=== PATIENT | female | born 1945 | race Native Hawaiian/Other Pacific Islander ===

== ENCOUNTER 2017-04-03 08:37 | Outpatient (CLI) | payer OTHER, MEDICARE | END 2017-04-03 10:00 | disposition home or self-care (01) | LOC: MAMMO 08:37 | DX: Z12.31 Encounter for screening mammogram for malignant neoplasm of breast (principal) | CPT/HCPCS: G0202-TC ==

== ENCOUNTER 2017-05-28 13:51 | Outpatient (CLI) | payer OTHER, MEDICARE | END 2017-05-28 19:38 | disposition home or self-care (01) | LOC: MAMMO 13:51 | DX: R92.8 Other abnormal and inconclusive findings on diagnostic imaging of breast (principal) | CPT/HCPCS: G0206-TC ==

== ENCOUNTER 2020-08-01 16:01 | Outpatient (CLI) | payer OTHER, MEDICARE ==
[2020-08-01 16:37] LABS: PLATELET COUNT 211 K/uL (152-353)
[2020-08-01 16:51] LABS: POTASSIUM 3.8 mmol/L (3.6-5.2)
== END 2020-08-02 00:47 | disposition home or self-care (01) ==
LOC: LAB 16:01
PROVIDERS: Nurse Practitioner Family
DX: E11.9 Type 2 diabetes mellitus without complications (principal); I10 Essential (primary) hypertension; E66.9 Obesity, unspecified; E55.9 Vitamin D deficiency, unspecified; R53.83 Other fatigue; G25.81 Restless legs syndrome; R53.81 Other malaise; Z79.899 Other long term (current) drug therapy
CPT/HCPCS: 80053; 80061; 83036; 84439; 84443; 84481; 85027

== ENCOUNTER 2021-10-21 15:27 | Emergency (ER) | payer OTHER ==
[~2021-10-21] VITALS: Ht 154.9 cm; Wt 113.4 kg
[2021-10-21 17:30] VITALS: BP 107/89; TEMP 98.2
== END 2021-10-21 17:42 | disposition home or self-care (01) ==
LOC: ED 15:34
DX: S09.8XXA Other specified injuries of head, initial encounter (principal); S39.012A Strain of muscle, fascia and tendon of lower back, initial encounter; W01.198A Fall on same level from slipping, tripping and stumbling with subsequent striking against other object, initial encounter; Y92.090 Kitchen in other non-institutional residence as the place of occurrence of the external cause
CPT/HCPCS: 99283